=== PATIENT | male | born 1930 | race Hispanic/Latino ===

== ENCOUNTER 2018-11-04 10:29 | Day surgery (SDC) | payer MEDICARE ==
[2018-11-04] MEDS ORDERED: LACTATED RINGERS 1,000 ML IV SCH (11:00)
[2018-11-04] MEDS ORDERED: ANCEF/STERILE WATER 2 GM/20 ML IV NR (11:00)
--- NOTE | 2018-11-04 11:06 | Anesthesia Day of Surgery ---
Anesthesia Day of Surgery - Day of Surgery Patient Examined: Yes Patient H&P Reviewed: Yes Patient is NPO: Yes
--- NOTE | 2018-11-04 11:06 | Anesthesia Consultation ---
Anesthesia Consult and Med Hx Date of service: 11/04/18 - Airway Anesthetic Teeth Evaluation: Poor ROM Head & Neck: Adequate (mild restriction to extension) Mental/Hyoid Distance: Adequate Mallampati Class: Class I Intubation Access Assessment: Probably Good - Pulmonary Exam CTA: Yes - Cardiac Exam Cardiac Exam: No Murmur (irregular rhythm) - Pre-Operative Health Status ASA Pre-Surgery Classification: ASA3 Proposed Anesthetic Plan: General - Pulmonary Hx Smoking: Yes (STOPPED X 35 YRS) Hx Respiratory Symptoms: No SOB: No Hx Sleep Apnea: No (JULIANA PRE SCREEN HIGH RISK.) - Cardiovascular System Hx Hypertension: Yes (X 30 YRS) Hx Coronary Artery Disease: Yes Hx Heart Attack/AMI: No Hx Angina: No Hx Percutaneous Transluminal Coronary Angioplasty (PTCA): Yes (20yrs ago) Hx Cardia Arrhythmia: Yes (a-fib) Hx Pacemaker: No Hx Internal Defibrillator: No - Central Nervous System CVA: No - Gastrointestinal Hx Gastroesophageal Reflux Disease: No - Endocrine Hx Renal Disease: No Hx Liver Disease: No Hx Insulin Dependent Diabetes: No Hx Non-Insulin Dependent Diabetes: No Hx Thyroid Disease: No - Other Systems Hx Alcohol Use: Yes (WINE QD) Hx Cancer: Yes Hx Obesity: No - Additional Comments Anesthesia Medical History Comments: No hx anesthetic complications. Last dose coumadin 10/29. Cardiology clearance on chart.
[2018-11-04] MEDS ORDERED: TORADOL ONE (13:00)
[2018-11-04] MEDS ORDERED: DECADRON ONE (13:00)
[2018-11-04] MEDS ORDERED: XYLOCAINE MPF 2% ONE (13:00)
[2018-11-04] MEDS ORDERED: SUBLIMAZE ONE (13:00)
[2018-11-04] MEDS ORDERED: DIPRIVAN 10 MG/ML IV ONE (13:00)
[2018-11-04] MEDS ORDERED: ZOFRAN ONE (13:00)
[2018-11-04] MEDS ORDERED: OMNIPAQUE 300 MG/50 ML (CATH LAB) IV ONE (15:31)
[2018-11-04] MEDS ORDERED: WATER FOR IRRIG STERILE IR ONE (15:31)
--- NOTE | 2018-11-04 16:01 | Post Operative Note ---
Date of procedure: 11/04/18 Pre-op diagnosis: hematuria Post-op diagnosis: same Findings: rad cystitis Procedure: cysto biopsis rpgs fulg Anesthesia: GETA Surgeon: CAROLINE GARCIA Estimated blood loss: minimal Pathology: list (bladder) Specimen disposition: to lab Condition: stable Disposition: PACU
--- NOTE | 2018-11-04 16:03 | Discharge Summary ---
Short Stay Discharge Plan Activity: other (no straining ) Weight Bearing Status: Full Weight Bearing Diet: low fat, low cholesterol, low salt Special Instructions: other (teach ramos care ) Durable Medical Equipment Needed Upon Discharge: other (ramos x 5 days ) Follow up with: KIRBY VEGA MD [Primary Care Provider] - 7 Days CAROLINE GARCIA MD [Staff Physician] - 11/09/18
[2018-11-04] MEDS: SUBLIMAZE IV PRN ×2 (16:10→16:27)
[2018-11-04 16:58] VITALS: BP 141/61
--- NOTE | 2018-11-04 20:02 | Operative Report ---
PREOPERATIVE DIAGNOSES: Gross hematuria, history of anticoagulation therapy, previous prostate cancer and radiation therapy. 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 PROCEDURE: Cystoscopy, fulguration of bleeding sites, biopsies, retrograde. SURGEON: Carlos mUana MD ANESTHESIA: General. FINDINGS: This is a gentleman with gross hematuria who is on Eliquis and aspirin, now presents for treatment and evaluation. He has had previous radiation for prostate cancer. DESCRIPTION OF PROCEDURE: The patient was brought to the operating room and placed on the operating table. Following induction of anesthesia, placed in lithotomy position, prepped and draped in usual sterile fashion. Cystourethroscopy showed telangiectasias throughout the prostate, bladder neck and bladder. There was some bleeding sites, which were cauterized. Retrograde showed some J hooking with a little fullness in the intramural ureters, but no hydronephrosis. No persistent filling defects. Biopsies were taken of some of these areas, which were elevated, especially the one over about a cm and half well away from the left orifice. The area was cauterized. The patient tolerated the procedure well. The areas were oozing that had to be cauterized. A catheter was left . He was brought to recovery room, family notified in stable condition. JOB# [id number] NORIS/ANGEL
--- NOTE | 2018-11-05 08:20 | Fluoroscopy Report ---
FLUOROSCOPY RETROGRADE UROGRAPHY: HISTORY: Gross hematuria. FINDINGS: Fluoroscopy was provided by radiology during retrograde urography by the urologist. 7 fluoroscopic images were captured. There is adequate filling of the ureters and intrarenal collecting systems with no filling defects or anatomic abnormalities identified. Bladder biopsies were performed per the operative notes. Please correlate with the procedural report if needed. IMPRESSION: Retrograde pyelograms within normal limits.
== END 2018-11-04 17:50 | disposition home or self-care (01) ==
LOC: OR 10:29
PROVIDERS: ATTEND Urology
DX: N30.21 Other chronic cystitis with hematuria (principal); N32.89 Other specified disorders of bladder; I25.10 Atherosclerotic heart disease of native coronary artery without angina pectoris; I42.9 Cardiomyopathy, unspecified; I48.91 Unspecified atrial fibrillation; I10 Essential (primary) hypertension; E78.00 Pure hypercholesterolemia, unspecified; M19.90 Unspecified osteoarthritis, unspecified site; Z72.89 Other problems related to lifestyle; Z98.890 Other specified postprocedural states; Z87.891 Personal history of nicotine dependence; Z79.82 Long term (current) use of aspirin; Z79.01 Long term (current) use of anticoagulants; Z85.46 Personal history of malignant neoplasm of prostate; Z79.899 Other long term (current) drug therapy; Z85.89 Personal history of malignant neoplasm of other organs and systems
CPT/HCPCS: 52204; 52214; 74420; 88305; A4217; C1758; J0690; J1100; J1885; J2405; J2704; J3010; J7120; Q9967